=== PATIENT | female | born 1980 | race Caucasian/White ===

== ENCOUNTER 2023-01-14 23:52 | Emergency (ER) | payer SELFPAY ==
[~2023-01-14] VITALS: Ht 167.6 cm; Wt 62.0 kg
[2023-01-14 23:56] VITALS: O2SAT 99
[2023-01-15 01:41] LABS: CHLORIDE 106 mEq/L (98-107)
[2023-01-15 01:44] LABS: BASOPHILS % 0.3 % (0.0-2.0); EOSINOPHILS % 0.3 % (0.0-5.0); HEMATOCRIT. 38.4 % (36.0-48.0); HEMOGLOBIN. 12.7 g/dL (12.0-16.0); LYMPHOCYTES % 19.2 % (20.0-50.0); MEAN CORPUSCULAR HEMOGLOBIN 29.6 pg (28.0-32.0); MEAN CORPUSCULAR VOLUME 89.4 fL (81.0-99.0); MEAN PLATELET VOLUME 8.1 fl (7.4-10.4); MONOCYTES % 6.8 % (2.0-8.0); NEUTROPHILS % 73.4 % (40.0-76.0); PLATELET 337 x1000/uL (130-400); RED BLOOD CELL COUNT 4.29 mill/uL (4.2-5.4); RED CELL DISTRIBUTION WIDTH 13.7 % (11.6-14.6)
[2023-01-15 05:53] VITALS: BP 120/84; PULSE 82; RESP 19; TEMP 97.8
== END 2023-01-15 05:53 | disposition home or self-care (01) ==
LOC: ER 23:52
DX: T50.905A Adverse effect of unspecified drugs, medicaments and biological substances, initial encounter (principal); Y92.9 Unspecified place or not applicable
CPT/HCPCS: 36415; 71045; 80053; 85025; 99284

== ENCOUNTER 2023-01-17 20:58 | Emergency (ER) | payer OTHER ==
[2023-01-17 22:06] VITALS: TEMP 98.3
[2023-01-18 01:32] VITALS: BP 142/81; PULSE 92; RESP 19
== END 2023-01-18 01:49 | disposition home or self-care (01) ==
LOC: ER 21:33
DX: T65.91XA Toxic effect of unspecified substance, accidental (unintentional), initial encounter (principal); R00.2 Palpitations; Y92.89 Other specified places as the place of occurrence of the external cause
CPT/HCPCS: 99281